=== PATIENT | female | born 1955 | race African-American/Black ===

== ENCOUNTER 2021-03-12 15:13 | Observation (INO) ==
[2021-03-12 16:02] LABS: Basophils # 0.1 10*3/uL (0.0-0.2); Basophils % 0.8 % (0.0-0.8); Eosinophils # 0.3 10*3/uL (0.0-0.87); Eosinophils % 4.2 % (0.00-10.9); Hematocrit 33.7 VOL% (35.7-47.0); Hemoglobin 11.1 GM/DL (12.0-16.0); Immature Granulocytes % 0.4 %; Immature Granulocytes Absolute 0.03 #; Lymphocytes # 3.6 10*3/uL (1.4-4.0); Lymphocytes % 45.1 % (21.3-54.2); Mean Corpuscular HGB Conc 32.9 GM/DL (32-36); Mean Platelet Volume 9.6 FL (9.6-12.0); Monocytes % 5.7 % (1.7-12.7); Neutrophils % 43.8 % (38.7-73.9); Platelet Count 252 T/CUMM (130-400); Red Blood Count 4.11 MC/CUMM (3.8-5.5); Red Cell Distribution Width 14.6 % (9.3-17.3); White Blood Count 7.9 T/CUMM (4-12)
[2021-03-12 16:25] LABS: Hypochromasia 1+; Platelet Estimate Adequate; Polychromasia Slight
[2021-03-12 16:27] LABS: Alanine Aminotransferase 13 U/L (13-56); Albumin 3.6 G/DL (3.4-5.0); Alkaline Phosphatase 51 U/L (45-117); Aspartate Amino Transferase 13 U/L (0-37); Bilirubin,Total < 0.39 MG/DL (0.20-1.00); Blood Urea Nitrogen 22 MG/DL (7-18); Calcium 8.6 MG/DL (8.5-10.1); Carbon Dioxide 26 MMOL/L (21-32); Estimated Glom Filtration Rate 62 ML/MIN; Glucose 93 MG/DL (74-106); Osmolality,Calculated 283.3 MOS/KG (273-304); Sodium 141 MMOL/L (136-145); Total Protein 7.3 G/DL (6.4-8.2)
[2021-03-12] MEDS ORDERED: DEXTROSE 50% 25 GM/50 ML VIAL IV PRN (16:40)
[2021-03-12] MEDS ORDERED: ONDANSETRON 4 MG/2 ML VIAL IV PRN (16:40)
[2021-03-12] MEDS ORDERED: PIPERACILLIN/TAZOBACTAM 3,375 MG in SODIUM CHLORIDE 0.9% 100 ML IV STA ×2 (16:40→16:44)
[2021-03-12] MEDS ORDERED: HYDROmorphone 2 MG/1 ML VIAL IV PRN (16:40)
[2021-03-12] MEDS ORDERED: ACETAMINOPHEN 325 MG TABLET PO PRN (16:40)
[2021-03-12] MEDS ORDERED: GLUCAGON 1 MG VIAL IM PRN (16:40)
[2021-03-12] MEDS ORDERED: ALBUTEROL 2.5 MG/3 ML NEB RESP TX PRN (16:57)
[2021-03-12 17:19] LABS: Bilirubin,Urine Negative (Negative); Blood, Urine Moderate mg/dL (Negative); Glucose,Urine (UA) Negative (Negative); Ketones,Urine Negative (Negative); Mucus,Urine Occasional /LPF (Occasional); Nitrite,Urine Negative (Negative); Protein,Urine Negative; RBC,Urine 4 /HPF (0-4); Squamous Epithelial Cell,Urine Few /HPF (0-10); Urine Appearance Slightly Hazy (Clear); Urine Color Yellow (Yellow); Urine Urobilinogen < 2.0 EU/DL (0.2-1.0)
[2021-03-12] MEDS: LACTATED RINGERS 1,000 ML IV SCH (20:06)
[2021-03-12] MEDS: BIMATOPROST 0.01% OPH SOLN 2.5 ML BOTTLE BOTH EYES SCH (20:06)
[2021-03-12] MEDS: ROSUVASTATIN 10 MG TABLET PO SCH (20:06)
[2021-03-13] MEDS: PIPERACILLIN/TAZOBACTAM 3,375 MG in SODIUM CHLORIDE 0.9% 100 ML IV SCH ×2 (00:46→10:10)
[2021-03-13 05:34] LABS: Basophils % 0.6 % (0.0-0.8); Eosinophils # 0.3 10*3/uL (0.0-0.87); Eosinophils % 4.6 % (0.00-10.9); Hematocrit 31.9 VOL% (35.7-47.0); Hemoglobin 10.8 GM/DL (12.0-16.0); Immature Granulocytes % 0.3 %; Immature Granulocytes Absolute 0.02 #; Lymphocytes # 3.2 10*3/uL (1.4-4.0); Lymphocytes % 47.6 % (21.3-54.2); Mean Corpuscular HGB Conc 33.9 GM/DL (32-36); Mean Corpuscular Volume 82.2 FL (87-102); Mean Platelet Volume 10.1 FL (9.6-12.0); Monocytes % 6.6 % (1.7-12.7); Neutrophils % 40.3 % (38.7-73.9); Platelet Count 240 T/CUMM (130-400); Red Blood Count 3.88 MC/CUMM (3.8-5.5); Red Cell Distribution Width 14.5 % (9.3-17.3); White Blood Count 6.8 T/CUMM (4-12)
[2021-03-13 06:08] LABS: Albumin 3.1 G/DL (3.4-5.0); Bilirubin,Total 0.6 MG/DL (0.20-1.00); Calcium 8.4 MG/DL (8.5-10.1); Osmolality,Calculated 287.8 MOS/KG (273-304); Total Protein 6.8 G/DL (6.4-8.2)
[2021-03-13] MEDS ORDERED: INDOCYANINE GREEN 25 MG VIAL IV ONE (06:24)
[2021-03-13] MEDS: amLODIPine 10 MG TABLET PO SCH (08:58)
[2021-03-13] MEDS: ESCITALOPRAM 10 MG TABLET PO SCH (08:58)
[2021-03-13] MEDS: BIMATOPROST 0.01% OPH SOLN 2.5 ML BOTTLE BOTH EYES SCH ×2 (08:58→21:06)
[2021-03-13] MEDS: lisinopriL 10 MG TABLET PO SCH (08:59)
[2021-03-13] MEDS: PANTOPRAZOLE 40 MG TABLET PO SCH (08:59)
[2021-03-13] MEDS: LACTATED RINGERS 1,000 ML IV SCH ×2 (09:45→15:15)
[2021-03-13] MEDS ORDERED: LIDOCAINE 1%/EPI INJ 20 ML VIAL ONE (12:51)
[2021-03-13] MEDS ORDERED: TISSUE ADHESIVE 1 EACH APPLICATOR TOP ONE (12:51)
[2021-03-13] MEDS ORDERED: BUPIVACAINE MPF 0.25% 30 ML VIAL ONE (12:51)
[2021-03-13] MEDS ORDERED: propofoL 200 MG/20 ML VIAL IV ONE (13:02)
[2021-03-13] MEDS ORDERED: MIDAZOLAM 2 MG/2 ML VIAL ONE (13:02)
[2021-03-13] MEDS ORDERED: fentaNYL 100 MCG/2 ML VIAL ONE ×2 (13:02→14:19)
[2021-03-13] MEDS ORDERED: LIDOCAINE 2% 5 ML VIAL ONE (13:02)
[2021-03-13] MEDS ORDERED: ROCURONIUM 50 MG/5 ML VIAL IV ONE (13:02)
[2021-03-13] MEDS ORDERED: FAMOTIDINE 20 MG/2 ML VIAL IV ONE (13:19)
[2021-03-13] MEDS ORDERED: ePHEDrine 50 MG/ML VIAL ONE (14:01)
[2021-03-13] MEDS ORDERED: SEVOFLURANE 1 UNIT/15 MINUTE INH ONE (14:08)
[2021-03-13] MEDS ORDERED: ONDANSETRON 4 MG/2 ML VIAL ONE (14:08)
[2021-03-13] MEDS ORDERED: NEOSTIGMINE 10 MG/10 ML VIAL ONE (14:28)
[2021-03-13] MEDS ORDERED: SUGAMMADEX 200 MG/2 ML VIAL IV ONE ×2 (14:56→15:07)
[2021-03-13] MEDS ORDERED: ONDANSETRON 4 MG/2 ML VIAL IV PRN (15:19)
[2021-03-13] MEDS: HYDROmorphone 2 MG/1 ML VIAL IV PRN ×2 (15:23→15:30)
[2021-03-13] MEDS ORDERED: diphenhydrAMINE CAP 25 MG CAPSULE PO PRN (17:42)
[2021-03-13] MEDS: ROSUVASTATIN 10 MG TABLET PO SCH (21:06)
[2021-03-14] MEDS: LACTATED RINGERS 1,000 ML IV SCH ×2 (01:16→06:32)
[2021-03-14] MEDS: ESCITALOPRAM 10 MG TABLET PO SCH (08:01)
[2021-03-14] MEDS: lisinopriL 10 MG TABLET PO SCH (08:01)
[2021-03-14] MEDS: PANTOPRAZOLE 40 MG TABLET PO SCH (08:01)
[2021-03-14] MEDS: BIMATOPROST 0.01% OPH SOLN 2.5 ML BOTTLE BOTH EYES SCH (08:01)
[2021-03-14] MEDS: amLODIPine 10 MG TABLET PO SCH (08:01)
[2021-03-14 12:11] VITALS: BP 147/58
== END 2021-03-14 12:30 | disposition home or self-care (01) ==
LOC: N.ED 15:13 → N.EDINP 15:13 → N.3E 18:08
PROVIDERS: ADMIT Surgery; ATTEND Surgery